=== PATIENT | female | born 1995 | race Caucasian/White ===

== ENCOUNTER → 2017-03-21 | Outpatient (CLI) | payer OTHER | LOC: BMCIMAGING 11:57 | PROVIDERS: ATTEND Physician Assistant | DX: M79.671 Pain in right foot (principal) ==

== ENCOUNTER → 2018-02-04 | Outpatient (CLI) | payer OTHER | LOC: BMCIMAGING 16:37 | PROVIDERS: ATTEND Podiatrist Foot & Ankle Surgery | DX: S82.441A Displaced spiral fracture of shaft of right fibula, initial encounter for closed fracture (principal) ==

== ENCOUNTER → 2018-02-11 | Outpatient (CLI) | payer OTHER | LOC: BMCIMAGING 13:51 | PROVIDERS: ATTEND Podiatrist Foot & Ankle Surgery | DX: S82.441D Displaced spiral fracture of shaft of right fibula, subsequent encounter for closed fracture with routine healing (principal) ==

== ENCOUNTER → 2018-03-11 | Outpatient (CLI) | payer OTHER | LOC: BMCIMAGING 14:08 | PROVIDERS: ATTEND Podiatrist Foot & Ankle Surgery | DX: S82.831D Other fracture of upper and lower end of right fibula, subsequent encounter for closed fracture with routine healing (principal) ==

== ENCOUNTER → 2018-04-08 | Outpatient (CLI) | payer OTHER | LOC: BMCIMAGING 15:58 | PROVIDERS: ATTEND Podiatrist Foot & Ankle Surgery | DX: S82.831D Other fracture of upper and lower end of right fibula, subsequent encounter for closed fracture with routine healing (principal) ==

== ENCOUNTER 2018-09-27 16:29 | Emergency (ER) | payer OTHER ==
[2018-09-27 16:35] VITALS: BP 135/92
--- NOTE | 2018-09-27 17:10 | EDPHY ---
HPI/HX/ROS/PE/MDM Narrative: CHIEF COMPLAINT: Painful lump on side of neck, fever, sore throat HPI: The patient is a 22 y/o female with a history of a tonsillectomy complaining of a painful lump on the side of her neck. For the last week she has had a subjective fever, chills, sore throat, and cough. On Sunday, 4 days ago, she saw a physician who only looked at the patient's throat and told her that she had a virus. She was advised to take ibuprofen and NyQuil. Yesterday, she noticed that she had lump on the right side of her neck that was painful. As her symptoms have not improved she decided to present to the emergency department. No headache, chest pain, shortness of breath, abdominal pain, urinary or bowel complaints, numbness, paresthesias. REVIEW OF SYSTEMS: Aside from elements discussed in the HPI, a comprehensive 10 system review of systems is otherwise negative. PMH: Tonsillectomy, elective SOCIAL HISTORY: Lives in [place], mother at bedside, employed PHYSICAL EXAM: General: Patient is alert, in no acute distress. ENT: Eyes are normal to inspection. EN inspection normal. Mild oropharyngeal erythema without exudates or asymmetry. Neck: Diffuse cervical lymphadenopathy, worse on the right. Full range of motion. Respiratory: No respiratory distress. Breath sounds normal bilaterally. Cardiovascular: Regular rate and rhythm. Strong peripheral pulses. Normal cap refill. Abdomen: The abdomen is nontender to palpation. There are no peritoneal signs. There are normal bowel sounds. Back: Normal to inspection. No tenderness to palpation. Skin: Normal color. No rash. Warm and dry. Extremities: Normal appearance. Full range of motion. Neuro: Oriented x3. Normal motor function. Normal sensory function. ED Course: 1714: Reassessed patient and discussed positive strep test. I have prescribed her Amoxicillin and advised her to take ibuprofen for pain and swelling. She is declining a steroid for her neck swelling at this time. Return precautions provided; patient is comfortable with this plan. MDM: This patient presents with signs and symptoms of pharyngitis or possible viral syndrome. There are no signs of airway compromise, severe dehydration, [employer] or epiglottitis. She declined IV/bloods/steroids. Given positive strep test, I will treat with amoxicillin. She has extensive anterior cervical lymphadenopathy, but I suspect this is likely related to her acute illness and recommended she monitor. I do not think she needs emergent imaging at this time. - Data Points Laboratory Results: 09/27/18 16:30 Group A Strep Screen POSITIVE H (NEGATIVE) General Time Seen by Provider: 09/27/18 17:08 Initial Vital Signs: Initial Vital Signs Temperature (C) 37.1 C 09/27/18 16:33 Heart Rate 84 09/27/18 16:33 Respiratory Rate 17 09/27/18 16:33 Blood Pressure 135/92 H 09/27/18 16:33 O2 Sat (%) 99 09/27/18 16:33 O2 Delivery Mode Room Air Allergies/Adverse Reactions: No Known Allergies Allergy (Verified 09/27/18 16:32) Home Medications: Medication Instructions Recorded Amoxicillin Trihydrate 500 mg PO TID 7 Days cap 09/27/18 [Amoxicillin] Xulane Patch 09/27/18 Departure - Departure Disposition: Home, Routine, Self-Care Clinical Impression: Acute streptococcal pharyngitis, Lymphadenopathy Condition: Good Instructions: Strep Throat (ED), Lymphadenopathy (ED) Additional Instructions: Take Amoxicillin as prescribed. Take ibuprofen or Aleve for the next several days. Follow up with your primary care physician within 72 hours for reevaluation. Drink plenty of fluids. Return to the emergency department immediately for high fever, severe headache or neck pain, inability to swallow, difficulty breathing, abdominal pain, rash or other worsening of condition. Referrals: [facility] [Other] - As per Instructions Prescriptions: Amoxicillin Trihydrate [Amoxicillin] 500 mg PO TID 7 Days cap Report Scribed for: Florian Cook Report Scribed by: Zee Chinchilla Date of Report: 09/27/18 Time of Report: 17:10 Physician Review and Approval Statement: Portions of this note were transcribed by an ED scribe. I personally performed the history, physical exam, and medical decision making; and confirm the accuracy of the information in the transcribed note.
== END 2018-09-27 17:25 | disposition home or self-care (01) ==
DX: J02.0 Streptococcal pharyngitis (principal); R59.1 Generalized enlarged lymph nodes; Z90.89 Acquired absence of other organs